=== PATIENT | female | born 1980 | race Caucasian/White ===

== ENCOUNTER 2018-10-21 11:04 | Emergency (ER) | payer SELFPAY ==
[~2018-10-21] VITALS: Ht 152.4 cm; Wt 57.2 kg
[2018-10-21 11:12] VITALS: BP 128/76; Ht 152.4 cm; Wt 57.2 kg
[2018-10-21] MEDS ORDERED: TORADOL10 MG PO (14:55)
[2018-10-21] MEDS ORDERED: KEFLEX500 MG PO (14:55)
== END 2018-10-21 15:06 | disposition home or self-care (01) ==
LOC: D.ER 11:04
DX: T63.301A Toxic effect of unspecified spider venom, accidental (unintentional), initial encounter (principal); Y92.89 Other specified places as the place of occurrence of the external cause; L03.113 Cellulitis of right upper limb; F17.200 Nicotine dependence, unspecified, uncomplicated